=== PATIENT | female | born 1970 ===

== ENCOUNTER 2017-03-11 13:48 | Emergency (ER) | payer BC, OTHER ==
[2017-03-11 14:06] VITALS: BP 125/80
--- NOTE | 2017-03-11 14:37 | UC ---
Complaint Female HPI - HPI Summary HPI Summary: 47 y/o female with c/o painful urination, cloudy urine, frequent urination. h/ o UTIs in past, ~ 1 every 3-4 years, treated before with bactrim without difficulty, no resistence. Patient states sytmpoms started last night, no treatment with cranberry juice. no meds, no PMH. no fever, chills, back pain - History Of Current Complaint Chief Complaint: UCGU Stated Complaint: UTI Time Seen by Provider: 03/11/17 14:23 Hx Obtained From: Patient Hx Last Menstrual Period: IUD, no menses Onset/Duration: Sudden Onset, Lasting Days Timing: Constant Severity Initially: Moderate Severity Currently: Moderate - Allergies/Home Medications Allergies/Adverse Reactions: Allergies Allergy/AdvReac Type Severity Reaction Status Date / Time Acetaminophen [From Tylenol] AdvReac Intermediate GI Upset Verified 03/11/17 14: 06 PMH/Surg Hx/FS Hx/Imm Hx Previously Healthy: No - Surgical History Surgical History: Yes Surgery Procedure, Year, and Place: HERNIA REPAIR x2. VARICOSE VEIN STRIPPING X 2 - Family History Known Family History: Positive: Cardiac Disease, Hypertension - Social History Alcohol Use: Occasionally Substance Use Type: None Smoking Status (MU): Never Smoked Tobacco Review of Systems Constitutional: Negative Gastrointestinal: Negative Genitourinary: Dysuria, Frequency, Urgency Musculoskeletal: Negative Is Patient Immunocompromised?: No All Other Systems Reviewed And Are Negative: Yes Physical Exam Triage Information Reviewed: Yes Appearance: Well-Appearing, No Pain Distress, Well-Nourished Vital Signs: Initial Vital Signs Temp 97.6 F 03/11/17 14:03 Pulse 64 03/11/17 14:03 Resp 16 03/11/17 14:03 BP 125/80 03/11/17 14:03 Abdomen Description: Positive: No Organomegaly, Soft, Other: - no cva tenderness b/l minimal tenderness to deep palpation over suprepubic region Neurological Exam: Normal Psychological Exam: Normal Complaint Female Dx - Course Course Of Treatment: UA +, patient treated for UTi, educated to increase fluid intact, ABX given, pyridium. F/U with PCP - Differential Dx/Diagnosis Differential Diagnosis/HQI/PQRI: Urinary Tract Infection Provider Diagnoses: UTI Discharge - Discharge Plan Condition: Stable Disposition: HOME Prescriptions: Phenazopyridine TAB* [Pyridium 100 mg TAB*] 100 mg PO TID #21 tab Sulfamethox/Trimethoprim DS* [Bactrim DS 800/160 TAB*] 1 tab PO BID #10 tab Patient Education Materials: Urinary Tract Infection in Women (ED) Referrals: Juan Muro MD [Primary Care Provider] - Additional Instructions: - Increase fluid intake - Motrin as needed for pain, spasms - Pyridium for spasm, urinary pain - Go to ER with fever, chills, back pain - Take antibiotics as directed
--- NOTE | 2017-03-12 16:32 | UC ---
Progress - Progress Note Progress Note: Pt with + ecoli Pt on BActrim await sensitivity no change at present 03/12/16 Rona
== END 2017-03-11 14:45 | disposition home or self-care (01) ==
LOC: UCEAST 13:48
DX: N39.0 Urinary tract infection, site not specified (principal); B96.20 Unspecified Escherichia coli [E. coli] as the cause of diseases classified elsewhere; Z87.440 Personal history of urinary (tract) infections; Z97.5 Presence of (intrauterine) contraceptive device; Z88.6 Allergy status to analgesic agent
CPT/HCPCS: 81003; 87077; 87086; 87186; 99212; G0463